=== PATIENT | female | born 1965 | race African-American/Black ===

== ENCOUNTER 2018-01-05 01:38 | Emergency (ER) | payer MEDICARE, MEDICAID ==
[~2018-01-05] VITALS: Ht 149.9 cm; Wt 59.0 kg
[2018-01-05] MEDS ORDERED: IBUPROFEN 800MG TABLET PO ONE (05:30)
[2018-01-05] MEDS ORDERED: ACETAMINOPHEN 325MG TABLET PO ONE (06:15)
[2018-01-05 06:55] VITALS: BP 116/76
== END 2018-01-05 07:07 | disposition home or self-care (01) ==
LOC: ER 01:38
DX: S92.355A Nondisplaced fracture of fifth metatarsal bone, left foot, initial encounter for closed fracture (principal); Z88.0 Allergy status to penicillin; Z91.041 Radiographic dye allergy status; E78.00 Pure hypercholesterolemia, unspecified; Z90.710 Acquired absence of both cervix and uterus; Z87.828 Personal history of other (healed) physical injury and trauma; W07.XXXA Fall from chair, initial encounter; Y93.89 Activity, other specified; Y92.018 Other place in single-family (private) house as the place of occurrence of the external cause
CPT/HCPCS: 29515; 73630; 99284

== ENCOUNTER 2021-02-09 13:32 | Emergency (ER) | payer MEDICARE, MEDICAID ==
[~2021-02-09] VITALS: Ht 157.5 cm; Wt 69.0 kg
[2021-02-09] MEDS ORDERED: ONDANSETRON HCL 4MG/2ML INJ IV STA (14:50)
[2021-02-09] MEDS ORDERED: MORPHINE SULFATE 4 MG/ML CPJ (NOT FOR IM USE) IV STA (14:50)
[2021-02-09] MEDS ORDERED: IPRATROPIUM BROMIDE (0.02%) 0.5MG/2.5ML NEB HHN ONE (15:00)
[2021-02-09 15:17] LABS: BASOPHILS % 0.5 % (0.0-2.0); HEMATOCRIT. 34.8 % (36.0-48.0); HEMOGLOBIN. 11.8 g/dL (12.0-16.0); LYMPHOCYTES % 20.3 % (20.0-50.0); MEAN CORPUSCULAR HEMOGLOBIN 30.8 pg (28.0-32.0); MEAN CORPUSCULAR VOLUME 91.2 fL (81.0-99.0); MEAN PLATELET VOLUME 7.3 fl (7.4-10.4); MONOCYTES % 7.4 % (2.0-8.0); NEUTROPHILS % 69.8 % (40.0-76.0); PLATELET 295 x1000/uL (130-400); RED BLOOD CELL COUNT 3.82 mill/uL (4.2-5.4); RED CELL DISTRIBUTION WIDTH 12.6 % (11.6-14.6)
[2021-02-09 15:24] LABS: CHLORIDE 112 mEq/L (98-107)
[2021-02-09 15:25] LABS: INR 0.9
[2021-02-09] MEDS ORDERED: OXYCODONE HCL/ACETAMINOPHEN 5/325MG TABLET PO NR (16:15)
[2021-02-09] MEDS ORDERED: DIPHENHYDRAMINE 25MG CAPSULE PO NR (16:15)
[2021-02-09 16:19] LABS: CLARITY URINE CLEAR (CLEAR); COLOR URINE YELLOW (YELLOW); KETONES URINE NEGATIVE (NEGATIVE); LEUKOCYTE ESTERASE URINE TRACE (NEGATIVE); NITRITE URINE NEGATIVE (NEGATIVE); OCCULT BLOOD URINE NEGATIVE (NEGATIVE); PH URINE 6.5 (4.5-8.0); PROTEIN URINE 1+ (NEGATIVE); SPECIFIC GRAVITY URINE 1.029 (1.005-1.030); UROBILINOGEN URINE 0.2 E.U./dL (0.2-1.0)
[2021-02-09] MEDS ORDERED: ALBU6.7H11 INH (16:44)
[2021-02-09] MEDS ORDERED: PRED10TA MT (16:44)
[2021-02-09] MEDS ORDERED: DOXY100C2 MT (16:44)
[2021-02-09] MEDS ORDERED: DOXYCYCLINE HYCLATE 100MG CAPSULE PO ONE (16:45)
[2021-02-09 17:00] VITALS: BP 130/85
== END 2021-02-09 17:33 | disposition home or self-care (01) ==
LOC: ER 15:41
DX: J40 Bronchitis, not specified as acute or chronic (principal); R07.89 Other chest pain; E78.00 Pure hypercholesterolemia, unspecified; Z20.822 Contact with and (suspected) exposure to COVID-19; Z90.710 Acquired absence of both cervix and uterus; Z88.0 Allergy status to penicillin
CPT/HCPCS: 36415; 71045; 80053; 81003; 83605; 84145; 84484; 85025; 85610; 87040; 87086; 93005; 94640; 96374; 96375; 99285; C9803; J2270; J2405; Q0163; U0003; U0005

== ENCOUNTER 2021-06-11 08:51 | Emergency (ER) | payer MEDICARE, MEDICAID ==
[~2021-06-11] VITALS: Ht 149.9 cm; Wt 53.0 kg
[~2021-06-11 08:51] MED LIST: ALBU6.7H15 INH; DOXY100C5 MT; PRED10TA MT
[2021-06-11] MEDS ORDERED: PREDNISONE 20MG TABLET PO STA (09:47)
[2021-06-11] MEDS ORDERED: IPRATROPIUM BROMIDE (0.02%) 0.5MG/2.5ML NEB HHN STA (09:47)
[2021-06-11] MEDS ORDERED: ALBUTEROL (0.083%) 2.5MG/3ML NEB HHN SCH (10:00)
[2021-06-11 10:27] LABS: BASOPHILS % 0.3 % (0.0-2.0); EOSINOPHILS % 1.7 % (0.0-5.0); HEMATOCRIT. 35.3 % (36.0-48.0); HEMOGLOBIN. 11.9 g/dL (12.0-16.0); LYMPHOCYTES % 21.2 % (20.0-50.0); MEAN CORPUSCULAR HEMOGLOBIN 30.7 pg (28.0-32.0); MEAN CORPUSCULAR VOLUME 90.9 fL (81.0-99.0); MEAN PLATELET VOLUME 7.8 fl (7.4-10.4); MONOCYTES % 6.4 % (2.0-8.0); NEUTROPHILS % 70.4 % (40.0-76.0); PLATELET 246 x1000/uL (130-400); RED BLOOD CELL COUNT 3.88 mill/uL (4.2-5.4); RED CELL DISTRIBUTION WIDTH 14.2 % (11.6-14.6)
[2021-06-11 10:34] LABS: CHLORIDE 113 mEq/L (98-107)
[2021-06-11] MEDS ORDERED: MORPHINE SULFATE 4 MG/ML CPJ (NOT FOR IM USE) IV ONE (11:45)
[2021-06-11] MEDS ORDERED: P50 MT (11:47)
[2021-06-11] MEDS ORDERED: MORPHINE SULFATE 2 MG/ML CPJ (NOT FOR IM USE) IV ONE (12:00)
[2021-06-11 12:04] VITALS: BP 183/109
== END 2021-06-11 12:15 | disposition home or self-care (01) ==
LOC: ER 08:51
DX: J44.1 Chronic obstructive pulmonary disease with (acute) exacerbation (principal); G89.29 Other chronic pain; R74.01 Elevation of levels of liver transaminase levels; E87.6 Hypokalemia; J45.909 Unspecified asthma, uncomplicated; E78.00 Pure hypercholesterolemia, unspecified; Z87.01 Personal history of pneumonia (recurrent); Z90.710 Acquired absence of both cervix and uterus; Z87.891 Personal history of nicotine dependence; Z88.0 Allergy status to penicillin; Z88.5 Allergy status to narcotic agent
CPT/HCPCS: 36415; 71045; 80053; 83880; 84484; 85025; 93005; 96374; 99285; J2270; J7512

== ENCOUNTER 2021-12-11 16:37 | Emergency (ER) | payer MEDICARE, MEDICAID ==
[~2021-12-11] VITALS: Ht 154.9 cm; Wt 55.0 kg
[~2021-12-11 16:37] MED LIST changes: +P50 MT
[2021-12-11] MEDS ORDERED: SODIUM CHLORIDE 0.9% 1,000 ML IV ONE (20:30)
[2021-12-11 20:35] LABS: BASOPHILS % 0.6 % (0.0-2.0); EOSINOPHILS % 1.3 % (0.0-5.0); HEMATOCRIT. 36.2 % (36.0-48.0); HEMOGLOBIN. 12.5 g/dL (12.0-16.0); LYMPHOCYTES % 31.9 % (20.0-50.0); MEAN CORPUSCULAR VOLUME 90.1 fL (81.0-99.0); MEAN PLATELET VOLUME 7.1 fl (7.4-10.4); MONOCYTES % 6.9 % (2.0-8.0); NEUTROPHILS % 59.3 % (40.0-76.0); PLATELET 337 x1000/uL (130-400); RED BLOOD CELL COUNT 4.02 mill/uL (4.2-5.4); RED CELL DISTRIBUTION WIDTH 13.6 % (11.6-14.6)
[2021-12-11 20:45] LABS: CHLORIDE 106 mEq/L (98-107)
[2021-12-11 21:29] LABS: CLARITY URINE CLEAR (CLEAR); COLOR URINE YELLOW (YELLOW); KETONES URINE NEGATIVE (NEGATIVE); LEUKOCYTE ESTERASE URINE NEGATIVE (NEGATIVE); NITRITE URINE NEGATIVE (NEGATIVE); OCCULT BLOOD URINE NEGATIVE (NEGATIVE); PH URINE 5.5 (4.5-8.0); PROTEIN URINE NEGATIVE (NEGATIVE); SPECIFIC GRAVITY URINE 1.034 (1.005-1.030); UROBILINOGEN URINE 0.2 E.U./dL (0.2-1.0)
[2021-12-11] MEDS ORDERED: MORPHINE SULFATE 2 MG/ML CPJ (NOT FOR IM USE) IV NR (22:30)
[2021-12-11 22:45] VITALS: BP 144/83
== END 2021-12-11 22:56 | disposition home or self-care (01) ==
LOC: ER 16:37
DX: R10.31 Right lower quadrant pain (principal); R10.11 Right upper quadrant pain; K76.0 Fatty (change of) liver, not elsewhere classified; N28.1 Cyst of kidney, acquired; Z88.0 Allergy status to penicillin; Z88.6 Allergy status to analgesic agent; Z91.041 Radiographic dye allergy status
CPT/HCPCS: 36415; 76700; 80053; 81003; 82248; 83690; 85025; 96361; 96374; 99284; J2270; J7030

== ENCOUNTER 2025-03-25 01:21 | Emergency (ER) | payer MEDICAID ==
[~2025-03-25] VITALS: Ht 165.1 cm; Wt 50.0 kg
[2025-03-25 01:29] VITALS: O2SAT 100
[2025-03-25] MEDS: ACETAMINOPHEN 325MG TABLET PO ONE (01:53)
[2025-03-25] MEDS: ONDANSETRON 4MG ODT PO ONE (01:54)
[2025-03-25 02:17] LABS: CREATININE 0.7 mg/dL (0.6-1.0); UREA NITROGEN BLOOD 17 mg/dL (9-23)
[2025-03-25 02:35] LABS: BASOPHILS % 0.4 % (0.0-2.0); EOSINOPHILS % 0.3 % (0.0-5.0); HEMATOCRIT. 36.3 % (36.0-48.0); HEMOGLOBIN. 12.1 g/dL (12.0-16.0); LYMPHOCYTES % 12.2 % (20.0-50.0); MEAN PLATELET VOLUME 7.8 fl (7.4-10.4); MONOCYTES % 6.5 % (2.0-8.0); NEUTROPHILS % 80.6 % (40.0-76.0); PLATELET 372 x1000/uL (130-400); RED BLOOD CELL COUNT 3.98 mill/uL (4.2-5.4); RED CELL DISTRIBUTION WIDTH 14.5 % (11.6-14.6)
[2025-03-25] MEDS: ONDANSETRON 4MG ODT PO NR (04:05)
[2025-03-25] MEDS ORDERED: ONDA4TAB50 MT (04:38)
[2025-03-25 04:52] VITALS: BP 161/68; PULSE 84; RESP 18; TEMP 36.9; O2SAT 99
== END 2025-03-25 05:15 | disposition home or self-care (01) ==
LOC: ER 01:21
DX: G43.909 Migraine, unspecified, not intractable, without status migrainosus (principal); J45.909 Unspecified asthma, uncomplicated; E78.00 Pure hypercholesterolemia, unspecified; Z00.00 Encounter for general adult medical examination without abnormal findings; Z88.8 Allergy status to other drugs, medicaments and biological substances; Z88.0 Allergy status to penicillin; Z79.899 Other long term (current) drug therapy; Z98.890 Other specified postprocedural states; Z90.710 Acquired absence of both cervix and uterus
CPT/HCPCS: 99284; 70450; 80048; 85025; 36415; Q0162

== ENCOUNTER 2025-05-25 22:28 | Emergency (ER) | payer MEDICAID ==
[~2025-05-25] VITALS: Ht 154.9 cm; Wt 50.0 kg
[~2025-05-25 22:28] MED LIST changes: -ALBU6.7H15 INH; +ATOR40TA70 PO; +BUTA1CAP45 PO; +DICL75TA5 PO; +DOCU-422 PO; -DOXY100C5 MT; +ICOS1CAP PO; +OMEP20CA14 PO; -P50 MT; -PRED10TA MT
[2025-05-25] MEDS: HALOPERIDOL LACTATE 5MG/ML VIAL IM ONE (22:45)
[2025-05-25 23:45] VITALS: O2SAT 99
[2025-05-26 00:25] LABS: BASOPHILS % 0.1 % (0.0-2.0); EOSINOPHILS % 0.1 % (0.0-5.0); HEMATOCRIT. 30.4 % (36.0-48.0); HEMOGLOBIN. 10.1 g/dL (12.0-16.0); LYMPHOCYTES % 12.0 % (20.0-50.0); MEAN PLATELET VOLUME 7.5 fl (7.4-10.4); MONOCYTES % 7.1 % (2.0-8.0); NEUTROPHILS % 80.7 % (40.0-76.0); PLATELET 191 x1000/uL (130-400); RED BLOOD CELL COUNT 3.31 mill/uL (4.2-5.4); RED CELL DISTRIBUTION WIDTH 14.2 % (11.6-14.6)
[2025-05-26 00:39] LABS: CREATININE 0.8 mg/dL (0.6-1.0); UREA NITROGEN BLOOD 18 mg/dL (9-23)
[2025-05-26 00:40] LABS: ETHANOL BLOOD < 10 mg/dL (<10)
[2025-05-26 00:41] LABS: ASPARTATE AMINOTRANSFERASE 79 IU/L (<34); BILIRUBIN DIRECT < 0.1 mg/dL (<=3.0); BILIRUBIN TOTAL 0.2 mg/dL (0.1-1.0); PROTEIN TOTAL 6.3 g/dL (6.0-8.3)
[2025-05-26] MEDS: POTASSIUM CHLORIDE 20MEQ/PACKET PO NR (02:43)
[2025-05-26] MEDS: LORAZEPAM 2MG/ML UD SYRINGE IM NR (03:52)
[2025-05-26 03:58] LABS: CLARITY URINE CLOUDY (CLEAR); COLOR URINE DARK YELLOW (YELLOW); GLUCOSE URINE NEGATIVE (NEGATIVE); KETONES URINE TRACE (NEGATIVE); LEUKOCYTE ESTERASE URINE NEGATIVE (NEGATIVE); NITRITE URINE NEGATIVE (NEGATIVE); OCCULT BLOOD URINE NEGATIVE (NEGATIVE); PH URINE 5.0 (4.5-8.0); PROTEIN URINE 2+ (NEGATIVE); SPECIFIC GRAVITY URINE 1.040 (1.005-1.030); UROBILINOGEN URINE 0.2 E.U./dL (0.2-1.0)
[2025-05-26 04:25] LABS: *AMPHETAMINES SCREEN URINE NEGATIVE (NEGATIVE); *BARBITURATES SCREEN URINE PRESUMPTIVE POSITIVE (NEGATIVE); *BENZODIAZEPINES SCREEN URINE PRESUMPTIVE POSITIVE (NEGATIVE); *COCAINE SCREEN URINE NEGATIVE (NEGATIVE); CANNABINOID URINE SCREEN PRESUMPTIVE POSITIVE (NEGATIVE); METHADONE URINE SCREEN NEGATIVE (NEGATIVE); OPIATES URINE SCREEN NEGATIVE (NEGATIVE); PHENCYCLIDINE URINE SCREEN NEGATIVE (NEGATIVE)
[2025-05-26 04:36] LABS: ECSTASY MDMA SCREEN URINE NEGATIVE (NEGATIVE); RBC URINE NONE SEEN /hpf (0-2); SQUAMOUS EPITHELIAL CELL URINE 1+ /lpf (RARE/1+); WBC URINE NONE SEEN /hpf (0-2)
[2025-05-26 04:37] LABS: BACTERIA URINE TRACE; CALCIUM OXALATE CRYSTALS URINE 2+ /lpf
[2025-05-26 07:50] LABS: CREATININE 0.7 mg/dL (0.6-1.0); UREA NITROGEN BLOOD 20 mg/dL (9-23)
[2025-05-26] MEDS: OLANZAPINE 5MG TABLET PO SCH (10:28)
[2025-05-26 15:41] VITALS: BP 139/45; PULSE 53; RESP 18; TEMP 36.7; O2SAT 99
== END 2025-05-26 15:40 ==
LOC: ER 22:28
DX: F29 Unspecified psychosis not due to a substance or known physiological condition (principal); E87.6 Hypokalemia; R74.01 Elevation of levels of liver transaminase levels; E78.00 Pure hypercholesterolemia, unspecified; Z78.1 Physical restraint status; Z87.01 Personal history of pneumonia (recurrent); J45.909 Unspecified asthma, uncomplicated; Z20.822 Contact with and (suspected) exposure to COVID-19; Z90.710 Acquired absence of both cervix and uterus; Z88.0 Allergy status to penicillin; Z88.8 Allergy status to other drugs, medicaments and biological substances; Z79.899 Other long term (current) drug therapy
CPT/HCPCS: 36415 ×2; 96372 ×2; 99285; 87426; 80076; 80305; 80048; 81003; 80307; 80329; 80320; 85025; J1630; J2060; G0480